=== PATIENT | female | born 1980 | race Caucasian/White ===

== ENCOUNTER 2016-09-17 11:41 | Emergency (ER) | payer OTHER ==
[~2016-09-17] VITALS: Ht 175.3 cm; Wt 91.8 kg
[~2016-09-17 11:41] MED LIST: CLC100 PO; CLON0.5T3 PO; IBUP-1428 PO; OXYC-57 PO; PRENTAB26 PO
[2016-09-17 11:45] VITALS: TEMP 37.1; Ht 175.3 cm; Wt 91.8 kg
--- NOTE | 2016-09-17 13:02 | DIAGNOSTIC IMAGING REPORT ---
CT SCAN OF THE BRAIN WITHOUT IV CONTRAST CLINICAL HISTORY: Dizziness. Fall. COMPARISON STUDY: No priors. TECHNIQUE: Unenhanced axial CT scan of the brain is performed from the vertex to the skull base. Automated dose control exposure was utilized. CT DOSE: 537.48 mGy.cm FINDINGS: Brain parenchyma: The brain parenchyma is normal in appearance. There is no hemorrhage, mass effect, or evidence of acute territorial ischemia by CT criteria. Connell-white matter is preserved. No extra-axial fluid collection is seen. Ventricles, sulci, cisterns: Normal in configuration. Intracranial vasculature: The visualized intracranial vasculature at the skull base is normal in appearance. Calvarium: There is no depressed calvarial fracture. Soft tissues: A 1.4 cm sebaceous cyst is noted in the right occipital scalp. Sinuses and mastoids: The visualized paranasal sinuses are clear. The mastoid air cells are well pneumatized. Orbits: The bony orbits are grossly intact. IMPRESSION: No acute intracranial abnormality. Electronically signed by: Heladio Collins M.D. 09/17/2016 1:00 PM Dictated Date/Time: 09/17/2016 12:58 PM
[2016-09-17 13:40] VITALS: BP 120/75; PULSE 90; O2SAT 100
--- NOTE | 2016-09-17 15:06 | EMERGENCY ROOM VISIT NOTE ---
ED Visit Note First contact with patient: 12:01 Chief Complaint: Head pain. History of Present Illness: Ms. Wang is a 35-year-old white female who ambulates into the ED complaining of right parietal head pain. Patient denies any significant past medical history related to today's visit. Patient reports last night at approximately 11 PM she had gotten up to let her dogs go out to go to the bathroom and then started having dizziness and lightheadedness. After 5 minutes she called her dogs back in and needed to grasp the chair. She remembers telling her self to sit in the chair. She then awoke lying on the floor under a table. She reports she does not remember a fall or striking her head at the time of the fall. Patient is amnestic to the event and is unsure how long she was lying. She does report that she was able to with mild lightheadedness and go to bed. When she awoke this morning she was feeling fine and had no headache or lightheadedness. She reports she went to work and while in a meeting she had difficulty concentrating and then developed lightheadedness. This provided the impetus to come to the ED for further evaluation and care. Currently patient is feeling slightly lightheaded but has no other complaints related to her head injury. She denies headache, dizziness, visual changes, hearing changes, difficulty speaking, difficulty swallowing, difficulty ambulating/coordinating body, neck pain, abdominal pain. She does report she is having posterior shoulder pain but reports she had a previous cortical fracture of the scapula. She did not one this further evaluated. Review of Systems: As noted above in history of present illness. 5 body systems were reviewed and found to be negative as noted above. Past Medical History: Pneumonia, bronchitis, status post section and unspecified left knee surgery. Current Medications: Patient denies. Allergies to Medications: Codeine, penicillin. Social History: Patient is currently employed; she feels safe in her home environment; she admits to tobacco use and denies alcohol use. Physical Examination: Vital Signs: Date Time Temp Pulse Resp B/P Pulse Ox O2 Delivery O2 Flow Rate FiO2 09/17/16 13:40 90 120/75 100 Room Air 09/17/16 11:45 37.1 101 16 122/89 98 Room Air GENERAL: 35-year-old female in no acute distress, nontoxic-appearing, afebrile and hemodynamically stable. NEUROLOGICAL: Awake, alert and oriented to person, place and time. Answering questions appropriately and following commands. Normal gait. Good hand eye coordination. No focal motor sensory deficits. Romberg test negative. Pronator test negative. Cranial nerves II through XII grossly intact. Short- term and long-term recall. Able to spell backwards but did not count backwards. Normal rapid alternating movements of the hands and fingers. SKIN: Warm, dry and pink. No soft tissue trauma noted. HEENT: Atraumatic and normocephalic. Skull: No bony deformity, depressions or tenderness. No raccoon's eyes or calloway signs. No drainage of the nostrils; no hemotympanum. Face: No bony tenderness, swelling or ecchymosis. PERRLA. EOMI without nystagmus. Normal funduscopic examination with no signs of increased intracranial pressure. Sclera white and conjunctiva pink. No malocclusion. Airway patent. No intraoral trauma. Speech normal. Trachea midline. No jugular venous distention. BACK: No tenderness over the bony cervical, thoracic and lumbar spine. Full range of motion of the cervical spine. THORAX: Lungs sounds are clear to auscultation and equal bilaterally with symmetrical chest wall. No wheezing, rales or rhonchi. HEART: Regular rate and rhythm. No gallops, rubs or murmurs are appreciated. ABDOMEN: Flat, soft and nontender. Positive bowel sounds in all quadrants. No guarding, rigidity or organomegaly. EXTREMITIES: Moves all extremities well on command and with purpose. All distal neurovascular statuses are intact and equal bilaterally. ED Course: Patient is assessed as noted above. EKG: Was read by myself and reviewed with Dr. Morales; and shows normal sinus rhythm with a ventricular rate of 69 bpm. Normal intervals and complexes. No acute ST changes indicating ischemia, injury or infarction. This was compared to a previous from 2010 and she is noted to have changes in lead V3 of questionable etiology. After review with my attending we did not feel this is contributory today's complaint and is not an unstable change. Head CT: Was reviewed by myself and read by the radiologist showing no intracranial abnormalities or skull fractures. Patient was offered pain medications and refused. Patient was educated about tonight's findings and instructed on her treatment plan; she verbalizes understanding and agreement with this plan. Clinical Impression: Concussion. Decision-Making: Initially my differential diagnosis I considered vasovagal sympathy, skull fracture, intracranial bleed, arrhythmias and other causes. Disposition: Patient discharged home in stable condition; prior to departure she was reassessed and subjectively reported she was feeling the same. Plan: Alternate 600 mg of ibuprofen 650 mg of acetaminophen every 3 hours as needed for pain. Use ice on areas of pain 5-6 times a day for 20-30 minutes. Rest for the next 48 hours and only do light activities like walking or strenuous activities. Have someone waking from sleep every 6 hours and continuously and assessed her orientation to yourself, the person waking and your location. Follow-up with the [facility] [phone] for follow-up care and treatment. Follow-up with your family physician for your EKG changes found today. Return ED for worsening signs of head injury includes worsening/uncontrolled headache, vomiting, personality changes, difficulty to arouse from sleep, difficulty ambulating/coordinating body movement, swallowing, any acute onset of chest pain, shortness of breath or sensations of heart racing or any new/ concerning symptoms.
== END 2016-09-17 14:05 | disposition home or self-care (01) ==
LOC: C.EDB 11:44 → C.EDC 14:05
DX: S06.0X0A Concussion without loss of consciousness, initial encounter (principal); W19.XXXA Unspecified fall, initial encounter; Y92.019 Unspecified place in single-family (private) house as the place of occurrence of the external cause; F17.210 Nicotine dependence, cigarettes, uncomplicated

== ENCOUNTER 2017-08-21 15:49 | Emergency (ER) | payer OTHER ==
[~2017-08-21] VITALS: Ht 175.3 cm; Wt 100.2 kg
[2017-08-21 15:56] VITALS: TEMP 36.9; Ht 175.3 cm; Wt 100.2 kg
[2017-08-21 16:07] VITALS: O2SAT 96
[2017-08-21] MEDS ORDERED: SODIUM CHLORIDE 0.9% 1000ML 1,000 ML IV STA (16:20)
[2017-08-21 16:28] LABS: BASO % 0.5 %; BASO ABS # 0.07 K/uL (0-0.2); COMPLETE YES; EOS % 0.4 %; HEMATOCRIT 41.1 % (37-47); IG% 0.3 %; LYMPH % 17.1 %; LYMPH ABS # 2.22 K/uL (1.2-3.4); MEAN CELL VOLUME 92.4 fL (80-100); MEAN CORPUSCULAR HEMOGLOBIN 31.5 pg (25-34); MEAN CORPUSCULAR HGB CONC 34.1 g/dl (32-36); MEAN PLATELET VOLUME 9.4 fL (7.4-10.4); MONO % 4.8 %; NEUT % 76.9 %; PLATELET COUNT 435 K/uL (130-400); RED BLOOD COUNT 4.45 M/uL (4.2-5.4); WHITE BLOOD COUNT 12.99 K/uL (4.8-10.8)
[2017-08-21] MEDS ORDERED: PREBIOTIC PO (16:29)
[2017-08-21] MEDS ORDERED: [UNRECOGNIZED DRUG - CODE] PO (16:29)
[2017-08-21] MEDS ORDERED: TURM1CAP2 PO (16:29)
[2017-08-21] MEDS ORDERED: MAGNESIUM PO (16:29)
[2017-08-21] MEDS ORDERED: POTASSIUM PO (16:29)
[2017-08-21] MEDS ORDERED: MISCCAP80 PO (16:29)
[2017-08-21] MEDS ORDERED: [UNRECOGNIZED DRUG - CODE] PO (16:29)
[2017-08-21 16:48] LABS: ALT/SGPT 36 U/L (12-78); AST/SGOT 16 U/L (15-37); BLOOD UREA NITROGEN 11 mg/dl (7-18); BUN/CREATININE RATIO 12.5 (10-20); CARBON DIOXIDE 28 mmol/L (21-32); CHLORIDE 105 mmol/L (98-107); CREATININE 0.85 mg/dl (0.60-1.20); GLUCOSE 138 mg/dl (70-99); MAGNESIUM 2.2 mg/dl (1.8-2.4); POTASSIUM 3.4 mmol/L (3.5-5.1); SODIUM 136 mmol/L (136-145)
[2017-08-21 16:49] LABS: PREG INTERNAL NEGATIVE QC NEG CLEAR BACKGROUND; PREG INTERNAL POSITIVE QC POS CONTROL LINE
--- NOTE | 2017-08-21 16:51 | DIAGNOSTIC IMAGING REPORT ---
CHEST ONE VIEW PORTABLE CLINICAL HISTORY: Palpitations. COMPARISON STUDY: No previous studies for comparison. FINDINGS: Lung volumes are normal. No consolidation is identified to suggest pneumonia. Pulmonary vascularity is normal. Cardiomediastinal silhouette is normal. There is no pneumothorax or pleural effusion. IMPRESSION: No acute cardiopulmonary findings. Electronically signed by: Harley Florence M.D. 08/21/2017 4:49 PM Dictated Date/Time: 08/21/2017 4:48 PM
[2017-08-21 16:58] LABS: ALB/GLOB RATIO 0.8 (0.9-2); ALKALINE PHOSPHATASE 67 U/L (45-117)
[2017-08-21 17:49] LABS: URINE APPEARANCE CLEAR (CLEAR); URINE BILIRUBIN NEG (NEG); URINE COLOR YELLOW; URINE EPITHELIAL CELL AUTO >30 /lpf (0-5); URINE NITRITE NEG (NEG); URINE SPECIFIC GRAVITY 1.012 (1.000-1.030); UROBILINOGEN NEG (NEG); ZZUR CULT IF INDIC CLEAN CATCH YES
[2017-08-21 17:53] LABS: MANUAL MICROSCOPIC REQUIRED? NO; REVIEW REQ? NO
[2017-08-21 18:29] VITALS: BP 116/80; PULSE 78; O2SAT 96
--- NOTE | 2017-08-21 18:38 | EMERGENCY ROOM VISIT NOTE ---
History First contact with patient: 16:09 Chief Complaint: CARDIAC ASSESSMENT Stated Complaint: HEART-EKG @[facility]ENT [facility] NO OK-DIZZY Nursing Triage Summary: patient was sitting at the desk and began to feel dizzy and her heart racing with the shakes, so she ate lunch and the symptoms did not releave afterward. no chest pain with any of these symptoms History of Present Illness The patient is a 36 year old female who presents to the Emergency Room with complaints of lightheadedness and palpitations. The patient states that she was sitting at her desk when she began to feel lightheaded and like her heart was racing. He states that she had a feeling like she was going to pass out. She ate granola bar which slightly improved her symptoms. She states that she has persistent palpitations and her hands feel cold. She states she was here once before for some similar symptoms, but those occurred after a head injury. She was seen at [facility] and referred here for further evaluation. She denies any cardiac history or family history of heart disease. The patient reports she is healthy and denies any pertinent medical problems. She denies any drug use or new [id number] medications. Review of Systems A complete 10 point review of systems was reviewed with the patient with pertinent positives and negatives as per history of present illness. All else were negative. Social History Smoking Status: Never Smoker Current/Historical Medications Scheduled Collagen (Avitene Flour), 5 ML PO DAILY Multiple Vitamins W/ Minerals (Ultra Da), 2 TABS PO QAM Probiotic Product (Probiotic), 1 CAP PO DAILY Turmeric (Curcuma Longa) (Turmeric), 1 CAP PO DAILY [Magnesium], 1 DOSE PO DAILY [Potassium Powder], 1 DOSE PO DAILY [Prebiotic], 1 TAB PO DAILY Physical Exam Vital Signs Date Time Temp Pulse Resp B/P (MAP) Pulse Ox O2 Delivery O2 Flow Rate FiO2 08/21/17 18:29 78 18 116/80 96 Room Air 08/21/17 17:32 88 120/63 89 118/87 100 117/79 08/21/17 17:19 100 18 117/84 97 Room Air 08/21/17 16:24 97 08/21/17 16:07 96 Room Air 08/21/17 16:07 96 Room Air 08/21/17 16:03 97 Room Air 08/21/17 15:56 36.9 117 18 136/87 96 Room Air Physical Exam VITALS: Vitals are noted on the nurse's note and reviewed by myself. Vital signs stable. GENERAL: This is a 36-year-old female, in no acute distress, nondiaphoretic, well-developed well-nourished. SKIN: The skin was without rashes. EYES: Pupils equal round and reactive to light and accommodation. MOUTH: Mucous membranes moist. Tonsils are not enlarged. Pharynx without erythema or exudate. NECK: Supple without nuchal rigidity. No lymphadenopathy. HEART: Regular rate and rhythm without murmurs gallops or rubs. LUNGS: Clear to auscultation bilaterally without wheezes, rales or rhonchi. NEURO: Patient was alert and oriented to person place and time. Medical Decision & Procedures ER Provider Diagnostic Interpretation: CHEST ONE VIEW PORTABLE CLINICAL HISTORY: Palpitations. COMPARISON STUDY: No previous studies for comparison. FINDINGS: Lung volumes are normal. No consolidation is identified to suggest pneumonia. Pulmonary vascularity is normal. Cardiomediastinal silhouette is normal. There is no pneumothorax or pleural effusion. IMPRESSION: No acute cardiopulmonary findings. Laboratory Results 08/21/17 16:10 Red Blood Count 4.45, Mean Corpuscular Volume 92.4, Mean Corpuscular Hemoglobin 31.5, Mean Corpuscular Hemoglobin Concent 34.1, Mean Platelet Volume 9.4, Neutrophils (%) (Auto) 76.9, Lymphocytes (%) (Auto) 17.1, Monocytes (%) (Auto) 4.8, Eosinophils (%) (Auto) 0.4, Basophils (%) (Auto) 0.5, Neutrophils # (Auto) 9.98, Lymphocytes # (Auto) 2.22, Monocytes # (Auto) 0.63, Eosinophils # (Auto) 0.05, Basophils # (Auto) 0.07 08/21/17 16:10 Test 08/21/17 16:10 08/21/17 17:25 White Blood Count 12.99 K/uL (4.8-10.8) Red Blood Count 4.45 M/uL (4.2-5.4) Hemoglobin 14.0 g/dL (12.0-16.0) Hematocrit 41.1 % (37-47) Mean Corpuscular Volume 92.4 fL (80-100) Mean Corpuscular Hemoglobin 31.5 pg (25-34) Mean Corpuscular Hemoglobin Concent 34.1 g/dl (32-36) Platelet Count 435 K/uL (130-400) Mean Platelet Volume 9.4 fL (7.4-10.4) Neutrophils (%) (Auto) 76.9 % Lymphocytes (%) (Auto) 17.1 % Monocytes (%) (Auto) 4.8 % Eosinophils (%) (Auto) 0.4 % Basophils (%) (Auto) 0.5 % Neutrophils # (Auto) 9.98 K/uL (1.4-6.5) Lymphocytes # (Auto) 2.22 K/uL (1.2-3.4) Monocytes # (Auto) 0.63 K/uL (0.11-0.59) Eosinophils # (Auto) 0.05 K/uL (0-0.5) Basophils # (Auto) 0.07 K/uL (0-0.2) RDW Standard Deviation 45.0 fL (36.4-46.3) RDW Coefficient of Variation 13.3 % (11.5-14.5) Immature Granulocyte % (Auto) 0.3 % Immature Granulocyte # (Auto) 0.04 K/uL (0.00-0.02) Anion Gap 3.0 mmol/L (3-11) Est Creatinine Clear Calc Drug Dose 113.1 ml/min Estimated GFR () 100.7 Estimated GFR (Non- 86.9 BUN/Creatinine Ratio 12.5 (10-20) Calcium Level 9.0 mg/dl (8.5-10.1) Magnesium Level 2.2 mg/dl (1.8-2.4) Total Bilirubin 0.2 mg/dl (0.2-1) Aspartate Amino Transf (AST/SGOT) 16 U/L (15-37) Alanine Aminotransferase (ALT/SGPT) 36 U/L (12-78) Alkaline Phosphatase 67 U/L (45-117) Troponin I < 0.015 ng/ml (0-0.045) Total Protein 8.6 gm/dl (6.4-8.2) Albumin 3.8 gm/dl (3.4-5.0) Globulin 4.8 gm/dl (2.5-4.0) Albumin/Globulin Ratio 0.8 (0.9-2) Thyroid Stimulating Hormone (TSH) 1.040 uIu/ml (0.300-4.500) Human Chorionic Gonadotropin, Qual NEG (NEG) Urine Color YELLOW Urine Appearance CLEAR (CLEAR) Urine pH 8.0 (4.5-7.5) Urine Specific [place] 1.012 (1.000-1.030) Urine Protein NEG (NEG) Urine Glucose (UA) NEG (NEG) Urine Ketones NEG (NEG) Urine Occult Blood NEG (NEG) Urine Nitrite NEG (NEG) Urine Bilirubin NEG (NEG) Urine Urobilinogen NEG (NEG) Urine Leukocyte Esterase TRACE (NEG) Urine WBC (Auto) 1-5 /hpf (0-5) Urine RBC (Auto) 0-4 /hpf (0-4) Urine Hyaline Casts (Auto) 0 /lpf (0-5) Urine Epithelial Cells (Auto) >30 /lpf (0-5) Urine Bacteria (Auto) 1+ (NEG) Medications Administered Medications (Trade) Dose Ordered Sig/Krissy Route Start Time Stop Time Status Last Admin Dose Admin Sodium Chloride 1,000 ml @ 999 mls/hr Q1H1M STAT IV 08/21/17 16:20 08/21/17 17:20 DC 08/21/17 16:26 999 MLS/HR ECG Rate (beats per minute): 110 Rhythm: sinus tachycardia Findings: other (incomplete right bundle-branch block) Medical Decision Differential diagnosis includes anemia, dehydration, hyperthyroidism, but joint imbalance, among others. The patient is a 36-year-old female who presents today complaining of palpitations and lightheadedness. Labs revealed mild leukocytosis. There is no evidence of infection on exam. Patient is not anemic. Urinalysis was not suggestive of infection. Urine was negative. EKG was interpreted by myself and shows sinus tachycardia. Patient is in a euthyroid state. The patient's heart rate did improve significantly after a liter of fluids. She may be dehydrated. I instructed her to stay well-hydrated and follow-up with her primary care provider. There may be a component of anxiety to her symptoms. Her potassium was slightly low and she does take potassium at home and was instructed to take an additional dose. Based on the patient's presentation and work up, I feel the patient is stable for outpatient treatment. The patient was educated to return to the emergency department for any worsening of their current condition or new/concerning symptoms. She will follow up with her PCP. Medication Reconcilliation Current Medication List: was personally reviewed by me Blood Pressure Screening Patient's blood pressure: Normal blood pressure Impression Primary Impression: Palpitations Departure Information Dispostion Home / Self-Care Condition GOOD Referrals Sebastián Wilson M.D. (PCP) Patient Instructions [facility] Additional Instructions Major to rest and drink plenty of fluids, especially things like Gatorade which contain electrolytes. Rest and avoid strenuous activity. Call your primary care provider to schedule a follow-up by the end of the week. Return to the emergency department with chest pain, shortness of breath, fevers , worsening symptoms, passing out or any other new/concerning symptoms.
== END 2017-08-21 18:48 | disposition home or self-care (01) ==
LOC: C.EDB 15:51 → C.EDC 18:48
DX: R00.2 Palpitations (principal)